=== PATIENT | female | born 1965 | race Caucasian/White ===

== ENCOUNTER → 2016-03-24 | Outpatient (CLI) | payer MEDICAID ==
--- NOTE | 2016-03-24 13:24 | MA ---
Right Diagnostic Digital Mammogram with iCAD Clinical Indications: Six-month follow-up for probably benign right breast asymmetry. Technique: Digital spot compression mediolateral oblique and true lateral views. This examination wa s processed by the iCAD computer-aided detection system. Comparison: August 2015, July 2015, August 2007, January 2004. Breast Density: C, 50-75%. Findings: The right breast MLO asymmetry appears less conspicuous and similar to previous studies con sistent with benign findings. No new dominant densities, suspicious clustered microcalcification or a rchitectural distortion in the right breast Impression: ACR BI-RADS 2: Benign right mammogram. Recommendation: Annual mammograms with next bilateral screening mammograms in July 2016. [facility] will send a result letter to the patient. Negative mammography should not preclude additional workup of a clinically suspicious finding. Findings and recommendations have been discussed with the patient who agrees with the plan. The patient's information is entered into a reminder system with a target due date for her next mammo gram.
== END ==
LOC: CIMAGING 12:53
PROVIDERS: ATTEND Family Medicine
DX: R92.2 Inconclusive mammogram (principal)
CPT/HCPCS: G0206

== ENCOUNTER → 2016-09-06 | Outpatient (CLI) | payer MEDICAID | LOC: CIMAGING 07:04 | PROVIDERS: ATTEND Family Medicine | DX: Z12.31 Encounter for screening mammogram for malignant neoplasm of breast (principal) | CPT/HCPCS: G0202 ==